=== PATIENT | male | born 1960 ===

== ENCOUNTER 2018-05-24 08:55 | Day surgery (SDC) | payer MEDICAID ==
[2018-05-02 10:18] VITALS: BMI 26.6
[2018-05-24] MEDS ORDERED: Morphine 10 mg/5 ml Oral Soln PO PRN (10:14)
[2018-05-24] MEDS ORDERED: Dextrose 5%/0.45% NS 1,000 ML IV SCH (10:15)
[2018-05-24] MEDS ORDERED: ceFAZolin IV 1 gm in Dextrose 1 GM/50 ML BAG IVPB ONE (11:21)
[2018-05-24] MEDS ORDERED: Propofol 10 mg/ml Inj (20 ML) ONE (11:30)
[2018-05-24] MEDS ORDERED: Succinylcholine Chloride 20 mg/ml Syr (5 ml) IV ONE (11:32)
[2018-05-24] MEDS ORDERED: HYDROmorphone 0.5 mg/0.5 ml ISec IVP PRN (12:05)
[2018-05-24] MEDS ORDERED: Lactated Ringer's 1,000 ML IV SCH (12:15)
[2018-05-24 13:31] VITALS: PULSE 58; RESP 16; O2SAT 100
[2018-05-24 15:41] VITALS: BP 117/72; TEMP 98
--- NOTE | 2018-05-24 22:54 | OP ---
PROCEDURE DATE: 05/24/2018 PREOPERATIVE DIAGNOSIS: Chronic tonsillitis. POSTOPERATIVE DIAGNOSIS: Chronic tonsillitis. PROCEDURE: Tonsillectomy. SIGNIFICANT FINDINGS: 2+ chronic infected tonsils. DESCRIPTION OF PROCEDURE: The patient was brought into room, placed in supine position. Anesthesia was initiated through an ET tube, and the patient was draped in usual manner. Mouth gag was placed in oral cavity, opened and suspended on the [employer] the usual manner. Right tonsil was grabbed and pulled medially. Incision was made in the anterior tonsillar pillar using coblation. Dissection was done between tonsil and tonsillar fossa using coblation until the tonsil was removed. Bleeding was controlled using coblation. Next, the other tonsil was grabbed and pulled medially. Incision was made in the anterior tonsillar pillar using coblation. Dissection was done between tonsil and tonsillar fossa using coblation until the tonsil was removed. Bleeding was controlled using coblation. Both tonsillar beds were rubbed vigorously with coblation wand. No bleeding was noted. Mouth gag was let down for 30 seconds and put back up, no bleeding was noted. Mouth gag was taken down and removed. The patient was taken off anesthesia and taken to recovery room in stable manner. Eleazar Bone MD
== END 2018-05-24 14:40 | disposition home or self-care (01) ==
LOC: EDBD → C.SDS 08:55
PROVIDERS: ATTEND Otolaryngology
DX: J35.01 Chronic tonsillitis (principal)
CPT/HCPCS: 42826; 88304; J0690; J1100; J1170; J2704; J3010